=== PATIENT | male | born 1960 | race Caucasian/White ===

== ENCOUNTER 2016-09-08 18:40 | Emergency (ER) | payer OTHER ==
[2016-09-08 20:28] LABS: HEMOGLOBIN 14.7 gm/dl (14.0-17.5); RED BLOOD COUNT 4.68 M/UL (4.20-5.50); WHITE BLOOD COUNT 6.3 K/UL (4.5-11.0)
[2016-09-08 20:44] LABS: BUN/CREATININE RATIO 21 (0-10)
== END 2016-09-09 00:41 | disposition home or self-care (01) ==
LOC: ER1 18:40
PROVIDERS: Student in an Organized Health Care Education/Training Program
DX: R10.10 Upper abdominal pain, unspecified (principal); K40.90 Unilateral inguinal hernia, without obstruction or gangrene, not specified as recurrent
CPT/HCPCS: 36415; 71010; 80053; 81001; 82150; 83690; 85025; 93005; 96374; 96375; 99284; J2270; J2405

== ENCOUNTER → 2016-09-27 | Outpatient (CLI) | payer OTHER | LOC: NM 11:58 | DX: R10.11 Right upper quadrant pain (principal); R10.13 Epigastric pain | CPT/HCPCS: 78227; A9537; J2805 ==

== ENCOUNTER → 2016-09-29 | Outpatient (CLI) | payer OTHER | LOC: RT 15:49 | DX: R00.1 Bradycardia, unspecified (principal) ==